=== PATIENT | male | born 1955 | race African-American/Black ===

== ENCOUNTER → 2023-12-16 | Outpatient (CLI) | payer OTHER ==
--- NOTE | 2023-12-16 14:50 | US ---
EXAMINATION TYPE: US abdomen limited DATE OF EXAM: 12/16/2023 COMPARISON: NONE CLINICAL INDICATION: Male, 68 years old with history of R10.9 UNSPECIFIED ABDOMINAL PAIN; Pain x 6 mo nths. TECHNIQUE: Multiple sonographic images of the right upper quadrant are obtained. 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 Pancreas: No abnormalities seen. Liver: Appears coarse in echotexture. Gallbladder: Appears anechoic. Evidence for sonographic Mondragon's sign: No CBD: Appears wnl Right Kidney: Renal pelvis appears prominent most likely secondary to prominent extrarenal pelvis. IMPRESSION: 1. Nonspecific coarsened pattern of the liver can be associated with underlying hepatocellular diseas e\hepatic steatosis. Correlate clinically. 2. A prominent right-sided renal pelvis. Extrarenal pelvis favored over mild hydronephrosis. Correlat e clinically.
== END | disposition home or self-care (01) ==
LOC: RADUSWWP 10:22
PROVIDERS: ATTEND Family Medicine
DX: R10.9 Unspecified abdominal pain
CPT/HCPCS: 76705

== ENCOUNTER → 2024-02-19 | Outpatient (CLI) | payer OTHER ==
[2024-02-19 13:38] LABS: African American GFR (CKD) >90 (>60 ml/min/1.73 sqM); Blood Urea Nitrogen 11 mg/dL (9-20); Non-African American GFR(CKD) 81 (>60 ml/min/1.73 sqM)
--- NOTE | 2024-02-19 16:03 | CT ---
EXAMINATION TYPE: CT abdomen pelvis w con CT DLP: 518.9 mGycm, Automated exposure control for dose reduction was used. DATE OF EXAM: 02/19/2024 3:06 PM COMPARISON: Abdominal ultrasound 12/16/2023 CLINICAL INDICATION:Male, 68 years old with history of R68.81 early satiety; Unspecified abdominal pa in. Poor historian. TECHNIQUE: Standard CT of the abdomen and pelvis following the administration of 100 cc of Isovue 3 00 IV contrast material and oral contrast. Coronal and sagittal reformats were performed. FINDINGS: LOWER CHEST: Unremarkable ABDOMEN LIVER: No focal lesion. Mild hepatomegaly measuring 17.1 cm in CC dimension. Noncirrhotic morphology to the liver. GALLBLADDER AND BILE DUCTS: Unremarkable. PANCREAS: Unremarkable. SPLEEN: Unremarkable. ADRENAL GLANDS: Unremarkable. KIDNEYS AND URETERS: No evidence of hydronephrosis or renal calculus. The kidneys enhance symmetrica lly. Left mid kidney partially exophytic 3.0 cm simple cyst. Contrast is demonstrated within both col lecting systems on the delayed phase. PELVIS BLADDER: Incompletely distended but grossly unremarkable. REPRODUCTIVE: Prostate is enlarged in size measuring 5.1 cm in transverse dimension. ABDOMEN & PELVIS STOMACH AND BOWEL: Wall thickening of the underdistended gastric fundus (series 3, image 15) . No foc al bowel wall thickening or surrounding inflammatory changes. The appendix is within normal limits. M oderate colonic stool burden. Enteric contrast reaches the transverse colon. No evidence of bowel obs truction. PERITONEUM: No evidence of pneumoperitoneum. Small amount of fluid identified within the rectovesicul ar space and perihepatic space. VASCULATURE: No evidence of aortic aneurysm. Few pelvic phleboliths. MUSCULOSKELETAL: No acute osseous abnormalities. Postfixation changes with intramedullary julita involvi ng the left proximal femur. Remote fractures of the bilateral L1 transverse process. Minimal grade 1 anterolisthesis of L4 and L5. No pars defects. LYMPH NODES: No evidence for lymphadenopathy. SOFT TISSUE/ABDOMINAL WALL: Unremarkable IMPRESSION: 1. Wall thickening of the underdistended gastric fundus. Underlying lesion is not excluded. Consider direct visualization. 2. Small amount of free fluid in the rectovesicular and perihepatic spaces. 3. Mild hepatomegaly. 4. Moderate colon stool burden. 5. Prostatomegaly. Correlate with PSA values. [facility], , 02/19/2024 4:00 PM
== END | disposition home or self-care (01) ==
LOC: RADCTMAIN 12:53
PROVIDERS: ATTEND Internal Medicine Gastroenterology
DX: N40.0 Benign prostatic hyperplasia without lower urinary tract symptoms (principal); R16.0 Hepatomegaly, not elsewhere classified; R68.81 Early satiety; R19.5 Other fecal abnormalities
CPT/HCPCS: 82565; 84520; 74177; 36415; Q9967